=== PATIENT | female | born 1975 | race Caucasian/White ===

== ENCOUNTER 2016-12-24 11:52 | Emergency (ER) | payer MEDICAID ==
--- NOTE | 2016-12-24 12:06 | Emergency Department Record ---
History of Present Illness - General Chief Complaint: Detox Evaluation Stated Complaint: WITHDRAWING FROM MORPHINE Time Seen by Provider: 12/24/16 11:54 Source: Patient, Family Mode of Arrival: Ambulatory Limitations: No limitations - History of Present Illness Initial Comments: 41 yo female presents with a concern about withdrawal from morphine. She has been on Morphine IR and ER for years. Her insurance would not fill this months Rx. She ran out 2 days prior. She reports withdrawal symptoms that started yesterday. She is having nausea, vomiting, and diarrhea. He chronic back pain is not controlled as well. She states she wants to stop her Morphine. She has an appointment tomorrow with her doctor at 3pm. MAPS was reviewed. She has a MAPS history with only her PCP with compliance without outside prescription use or abuse of providers. MD Complaint: Other (withdrawal from morphine) -: Days(s) (1) Associated Psychiatric Symptoms: None History of same: No Quality: Constant Improves With: Medication Context: Other (Insure did not fill her Morphine ER Rx) Associated Symptoms: Nausea, Vomiting, Other (diarrhea) Treatments Prior to Arrival: None - Unruly Coma Scale Eye Response: (4) Open spontaneously Motor Response: (6) Obeys commands Verbal Response: (5) Oriented Unruly Total: 15 - Related Data Previous Rx's Medication Instructions Recorded Cyclobenzaprine HCl [Flexeril] 10 mg PO TID #10 tablet 01/15/16 Ondansetron [Zofran Odt] 4 mg PO Q8H #15 tab.rapdis 12/24/16 Allergies Allergy/AdvReac Type Severity Reaction Status Date / Time bee pollen Allergy Severe SWELLING Verified 02/09/15 19:12 (GENERAL) Review of Systems Constitutional: Reports: Malaise, Weakness. Denies: Chills, Fever Eyes: Denies: Eye discharge, Eye pain, Photophobia, Vision change ENT: Reports: Congestion. Denies: Throat pain Respiratory: Denies: Cough, Dyspnea, Hemoptysis, Stridor, Wheezes Cardiovascular: Denies: Chest pain, Dyspnea on exertion, Palpitations, Syncope Endocrine: Reports: Fatigue. Denies: Polydipsia, Polyuria Gastrointestinal: Reports: Diarrhea, Nausea, Vomiting. Denies: Constipation, Hematemesis, Hematochezia, Melena Genitourinary: Denies: Dyspareunia, Dysuria, Urgency Musculoskeletal: Reports: Back pain (chronic). 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: Reports: no ACCOUNT MANAGER SALES REPRESENTATIVE history - RESPIRATORY Hx Respiratory Disorders: No - CARDIOVASCULAR Hx Cardio Disorders: No - NEURO Hx Neuro Disorders: No - GI Hx GI Disorders: No - Hx Genitourinary Disorders: No - ENDOCRINE Hx Endocrine Disorders: No - MUSCULOSKELETAL Hx Musculoskeletal Disorders: Yes Comment:: ankylosing spondylitis - PSYCH Hx Psych Problems: Yes Comment:: ADD - HEMATOLOGY/ONCOLOGY Hx Hematology/Oncology Disorders: No Family Medical History Family Hx Comment (NOT TO BE USED IN PLACE OF ITEMS BELOW): Father-Grave's disease Hx Heart Disease: Father, Grandparents *Heart Comment: Aunt Hx HTN: Grandparents Physical Exam - General General Appearance: Alert, Oriented x3, Cooperative, No acute distress Limitations: No limitations - Head Head exam: Atraumatic, Normocephalic, Normal inspection - Eye Eye exam: Normal appearance, PERRL, EOMI. negative: Conjunctival injection, Nystagmus, Periorbital swelling, Scleral icterus - ENT ENT exam: Normal exam, Mucous membranes moist Ear exam: Normal external inspection Nasal Exam: Normal inspection Mouth exam: Normal external inspection - Neck Neck exam: Normal inspection, Full ROM. negative: Tenderness - Respiratory Respiratory exam: Normal lung sounds bilaterally. negative: Respiratory distress, Rhonchi, Stridor, Wheezes - Cardiovascular Cardiovascular Exam: Regular rate, Normal rhythm, Normal heart sounds Peripheral Pulses: 2+: Radial (R), Radial (L) - GI/Abdominal GI/Abdominal exam: Soft. negative: Tenderness - Rectal Rectal exam: Deferred - exam: Deferred - Extremities Extremities exam: Normal inspection, Full ROM, Normal capillary refill. negative: Tenderness - Back Back exam: Reports: Normal inspection, Full ROM. Denies: Muscle spasm, Rash noted, Tenderness - Neurological Neurological exam: Alert, CN II-XII intact, Normal gait, Oriented X3, Reflexes normal. negative: Altered - Psychiatric Psychiatric exam: Normal affect, Normal mood. negative: Agitated, Anxious - Skin Skin exam: Dry, Intact, Normal color, Warm Course - Reevaluation(s) Reevaluation #1: MAPS reviewed. See HPI No patterns of obvious provider abuse. 12/24/16 12:22 12/24/16 12:54 The patient is doing much better Her withdrawal symptoms have greatly improved No current nausea or vomiting. 12/24/16 13:10 CMP reviewed K is 3.3 Mild increase in Bili No acute LFT changes 12/24/16 14:30 The patient is feeling greatly improved Her pain is controlled and no nausea We discussed limited medication for the next 24 hours until she sees her doctor Medical Decision Making - Lab Data Result diagrams: 12/24/16 12:17 12/24/16 12:17 Disposition Disposition: Discharge Clinical Impression: Opioid withdrawal Disposition: Home, Self-Care Condition: (1) Good Instructions: Opioid Withdrawal (ED) Additional Instructions: Follow up tomorrow as scheduled with your doctor to discuss keno terminal operator decrease use of your pain medications Prescriptions: Ondansetron [Zofran Odt] 4 mg PO Q8H #15 tab.rapdis Forms: Patient Portal Access Time of Disposition: 14:31 Quality - Quality Measures Quality Measures: N/A - Blood Pressure Screening Does Patient Have Any of the Following: No Blood Pressure Classification: Normal BP Reading Systolic Measurement: 117 Diastolic Measurement: 68 Screening for High Blood Pressure: < Normal BP, F/U Not Required > [G8783] Pre-Hypertensive Follow-up Interventions: Referral to alternative/primary care provider.
[2016-12-24] MEDS ORDERED: HYDROMORPHONE HCL 1MG/ML **SYRINGE IVP ONE (12:17)
[2016-12-24] MEDS ORDERED: 0.9 % SODIUM CHLORIDE 1,000 ML BAG IV ONE (12:17)
[2016-12-24] MEDS ORDERED: ONDANSETRON HCL IV 4 MG/2 ML VIAL IVP ONE (12:24)
[2016-12-24 12:34] LABS: HEMATOCRIT 46.2 % (35.0-47.0); HEMOGLOBIN 15.8 gm/dl (11.6-16.0); MEAN CELL VOLUME 85.2 fl (81-97); MEAN CORPUSCULAR HGB CONC 34.2 g/dl (32-36); MEAN PLATELET VOLUME 9.4 fl (7.4-10.4); PLATELET COUNT 683 K/uL (130-400); RED BLOOD COUNT 5.42 M/uL (3.80-5.40); RED CELL DISTRIBUTION WIDTH 13.7 % (11.5-14.5); WHITE BLOOD COUNT W/O DIFF 15.7 K/uL (4.2-12.2)
[2016-12-24 12:36] LABS: MEAN CORPUSCULAR HEMOGLOBIN 29.1 pg (27-33)
[2016-12-24 12:45] LABS: PLATELET ESTIMATE INCREASED (NORMAL)
[2016-12-24 12:57] LABS: ALB/GLOB RATIO 1.4 (1.1-1.8); ALBUMIN 4.6 g/dL (4.0-5.0); ALKALINE PHOSPHATASE 76 U/L (35-104); ALT/SGPT 10 U/L (<33); AST/SGOT 13 U/L (10.0-35.0); BLOOD UREA NITROGEN 13 mg/dL (6-20); CREATININE 0.7 mg/dL (0.5-0.9); EST GLOMERULAR FILTRATION RATE > 60 mL/min; GLUCOSE,RANDOM 142 mg/dL (74-109); TOTAL PROTEIN 7.8 g/dL (6.6-8.7)
[2016-12-24 14:31] LABS: URINE APPEARANCE CLEAR; URINE BILIRUBIN NEGATIVE (NEGATIVE); URINE BLOOD TRACE-I (NEGATIVE); URINE COLOR YELLOW; URINE GLUCOSE (UA) NEGATIVE (NEGATIVE); URINE KETONE TRACE (NEGATIVE); URINE LEUKOCYTE ESTERASE NEGATIVE (NEGATIVE); URINE NITRITE POSITIVE (NEGATIVE); URINE PROTEIN TRACE (NEGATIVE); URINE UROBILINOGEN 0.2 E.U./dL (0.20 - 1.00)
[2016-12-24] MEDS ORDERED: ONDANSETRON 4 MG ODT TABLET SL STA (14:31)
[2016-12-24] MEDS ORDERED: HYDROCODONE/APAP 10/325 TABLET PO ONE (14:31)
[2016-12-24 14:47] LABS: URINE BACTERIA 4+; URINE MUCUS HEAVY
== END 2016-12-24 14:46 | disposition home or self-care (01) ==
LOC: ER 11:52
DX: F11.23 Opioid dependence with withdrawal (principal); R11.2 Nausea with vomiting, unspecified; R19.7 Diarrhea, unspecified; M54.9 Dorsalgia, unspecified; T40.2X5A Adverse effect of other opioids, initial encounter; F17.210 Nicotine dependence, cigarettes, uncomplicated
CPT/HCPCS: 80053; 81001; 85027; 96374; 96375; 99284; J1170; J2405; J7030

== ENCOUNTER 2017-07-13 13:36 | Emergency (ER) | payer MEDICAID ==
[2017-07-13] MEDS ORDERED: KETOROLAC 60 MG/2 ML VIAL IM STA (15:11)
[2017-07-13] MEDS ORDERED: ORPHENADRINE CITRATE 60MG/2ML VIAL IM ONE (15:11)
--- NOTE | 2017-07-13 15:15 | Emergency Department Record ---
History of Present Illness - General Chief Complaint: Back Pain/Injury Stated Complaint: BACK PAIN Time Seen by Provider: 07/13/17 14:50 - History of Present Illness Initial Comments: back pain on the right side with radiculopathy into the right leg and yesterday twisted and made it worse. She says she is being worked up for back surgery and taking percocet but still painful.MRI scheduled for next week. MD Complaint: Back pain -: Year(s) Severity: Moderate Severity scale (1-10): 9 Quality: Aching, Sharp, Tingling Consistency: Constant, Intermittent, Getting worse Improves With: None Worsens With: Movement, Sitting upright Context: Unknown Associated Symptoms: Denies other symptoms - Related Data Home Medications Medication Instructions Recorded Confirmed Last Taken Oxycodone HCl/Acetaminophen 1 tab PO Q8H PRN 07/13/17 07/13/17 07/13/17 [Oxycodone/Acetaminophen 10mg/325mg] Previous Rx's Medication Instructions Recorded Cyclobenzaprine HCl [Flexeril] 10 mg PO TID #30 tablet 07/13/17 Naproxen [Naprosyn] 500 mg PO BID #20 tablet 07/13/17 Allergies Allergy/AdvReac Type Severity Reaction Status Date / Time bee pollen Allergy Severe SWELLING Verified 07/13/17 13:55 (GENERAL) Travel Screening - Travel/Exposure Within Last 30 Days Have you traveled within the last 30 days?: No - Travel/Exposure Within Last Year Have you traveled outside the [place] in the last year?: No - Travel Symptoms Symptom Screening: None Review of Systems Reviewed: No additional complaints except as noted below Constitutional: Reports: As per HPI. Denies: Chills, Fever, Malaise, Night sweats, Weakness, Weight change Eyes: Reports: As per HPI. Denies: Eye discharge, Eye pain, Photophobia, Vision change ENT: Reports: As per HPI. Denies: Congestion, Dental pain, Ear pain, Epistaxis , Hearing loss, Throat pain Respiratory: Reports: As per HPI. Denies: Cough, Dyspnea, Hemoptysis, Stridor, Wheezes Cardiovascular: Reports: As per HPI. Denies: Arrhythmia, Chest pain, Dyspnea on exertion, Edema, Murmurs, Orthopnea, Palpitations, Paroxysmal nocturnal dyspnea, Rheumatic Fever, Syncope Endocrine: Reports: As per HPI. Denies: Fatigue, Heat or cold intolerance, Polydipsia, Polyuria Gastrointestinal: Reports: As per HPI. Denies: Abdominal pain, Constipation, Diarrhea, Hematemesis, Hematochezia, Melena, Nausea, Vomiting Genitourinary: Reports: As per HPI. Denies: Abnormal menses, Discharge, Dyspareunia, Dysuria, Frequency, Hematuria, Incontinence, Retention, Urgency Musculoskeletal: Reports: As per HPI, Back pain. Denies: Arthralgia, Gout, Joint swelling, Myalgia, Neck pain Skin: Reports: As per HPI. Denies: Bruising, Change in color, Change in hair/ nails, Lesions, Pruritus, Rash Neurological: Reports: As per HPI. Denies: Abnormal gait, Confusion, Headache, Numbness, Paresthesias, Seizure, Tingling, Tremors, Vertigo, Weakness Psychiatric: Reports: As per HPI. Denies: Anxiety, Auditory hallucinations, Depression, Homicidal thoughts, Suicidal thoughts, Visual hallucinations Hematological/Lymphatic: Reports: As per HPI. 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: Reports: no FIRST LINE PRODUCTION SUPERVISOR history - RESPIRATORY Hx Respiratory Disorders: No - CARDIOVASCULAR Hx Cardio Disorders: No - NEURO Hx Neuro Disorders: No - GI Hx GI Disorders: No - Hx Genitourinary Disorders: No - ENDOCRINE Hx Endocrine Disorders: No - MUSCULOSKELETAL Hx Musculoskeletal Disorders: Yes Comment:: ankylosing spondylitis - PSYCH Hx Psych Problems: Yes Comment:: ADD - HEMATOLOGY/ONCOLOGY Hx Hematology/Oncology Disorders: No Family Medical History Any Significant Family History?: Yes Family Hx Comment (NOT TO BE USED IN PLACE OF ITEMS BELOW): Father-Grave's disease Hx Heart Disease: Father, Grandparents *Heart Comment: Aunt Hx HTN: Grandparents Physical Exam - General General Appearance: Alert, Oriented x3, Cooperative, No acute distress - Head Head exam: Normal inspection - Eye Eye exam: Normal appearance, PERRL Pupils: Normal accommodation - ENT ENT exam: Normal exam, Mucous membranes moist, Normal external ear exam, Normal orophraynx, TM's normal bilaterally Ear exam: Normal external inspection. negative: External canal tenderness Nasal Exam: Normal inspection. negative: Discharge, Sinus tenderness Mouth exam: Normal external inspection, Tongue normal Teeth exam: Normal inspection. negative: Dental caries Throat exam: Normal inspection. negative: Tonsillar erythema, Tonsillar exudate - Neck Neck exam: Normal inspection, Full ROM. negative: Tenderness - Respiratory Respiratory exam: Normal lung sounds bilaterally. negative: Respiratory distress - Cardiovascular Cardiovascular Exam: Regular rate, Normal rhythm, Normal heart sounds - GI/Abdominal GI/Abdominal exam: Soft, Normal bowel sounds. negative: Tenderness - Rectal Rectal exam: Deferred - exam: Deferred - Extremities Extremities exam: Normal inspection, Full ROM, Normal capillary refill. negative: Tenderness - Back Back exam: Reports: Normal inspection, Full ROM. Denies: Muscle spasm, Rash noted, Tenderness - Neurological Neurological exam: Alert, Normal gait, Oriented X3, Reflexes normal - Psychiatric Psychiatric exam: Normal affect, Normal mood - Skin Skin exam: Dry, Intact, Normal color, Warm Course Vital Signs 07/13/17 13:46 Temperature 97.9 F Pulse Rate 104 H Respiratory 18 Rate Blood Pressure 137/93 Pulse Ox 99 Disposition Clinical Impression: Acute lumbar myofascial strain Qualifiers: Encounter type: initial encounter Qualified Code(s): S39.012A - Strain of muscle, fascia and tendon of lower back, initial encounter Disposition: Home, Self-Care Condition: (2) Stable Instructions: Low Back Strain (ED) Additional Instructions: follow up with family in 3-4 days heat to back three times a day Prescriptions: Cyclobenzaprine HCl [Flexeril] 10 mg PO TID #30 tablet Naproxen [Naprosyn] 500 mg PO BID #20 tablet Forms: Patient Portal Access Time of Disposition: 16:15 Quality - Quality Measures Quality Measures: N/A - Blood Pressure Screening Does Patient Have Any of the Following: No Blood Pressure Classification: Hypertensive Reading Systolic Measurement: 137 Diastolic Measurement: 93 Screening for High Blood Pressure: < Pre-Hypertensive BP, F/U Documented > [ G8950] Pre-Hypertensive Follow-up Interventions: Referral to alternative/primary care provider.
== END 2017-07-13 16:25 | disposition home or self-care (01) ==
LOC: ER 13:36
DX: S39.012A Strain of muscle, fascia and tendon of lower back, initial encounter (principal); M54.16 Radiculopathy, lumbar region; X50.1XXA Overexertion from prolonged static or awkward postures, initial encounter; F17.210 Nicotine dependence, cigarettes, uncomplicated
CPT/HCPCS: 96372; 99283; J1885; J2360